=== PATIENT | female | born 1975 | race Caucasian/White ===

== ENCOUNTER → 2017-03-06 | Outpatient (CLI) | payer BC, MEDICAID ==
--- NOTE | 2017-03-06 13:13 | Diagnostic Imaging Report ---
PROCEDURE: US abdomen complete. TECHNIQUE: Multiple real-time grayscale images were obtained over the abdomen in various projections. INDICATION: Pain, history of hernia. FINDINGS: Hepatic parenchymal echotexture is homogenous and unremarkable. No solid or cystic mass. No biliary dilatation. The gallbladder appears normal. Pancreas is obscured by overlying bowel gas as is the majority of the aorta. The partially visualized cava appears normal. Right kidney measures at least 8.8 cm long axis. Its upper pole is obscured by gas. Its visualized portions are unremarkable. The left kidney measures 10.5 cm unobstructed and normal. There is no ascites or fluid collection. The spleen is 13 cm and nonfocal. IMPRESSION: No abnormality identified. Shadowing bowel gas obscures from visualization portions of the central retroperitoneum and the upper pole of the right kidney, no visualized abnormality. Dictated by: Dictated on workstation # [id number]
--- NOTE | 2017-03-06 13:31 | Diagnostic Imaging Report ---
Three views of the lumbar spine. INDICATION: Back pain. FINDINGS: There is satisfactory alignment of the lumbar spine. The vertebral body heights are preserved. Disc heights are also preserved. There is minimal anterior osteophyte formation around the thoracolumbar junction and in the [id number] lumbar spine levels. The SI joints appear unremarkable. The paraspinal soft tissues appear unremarkable. IMPRESSION: Minimal degenerative changes. Dictated by: Dictated on workstation # [id number]
--- NOTE | 2017-03-06 13:44 | Diagnostic Imaging Report ---
Three views of the thoracic spine. INDICATION: Back pain. FINDINGS: The alignment at the posterior spinal line is satisfactory. The vertebral body heights are preserved. Disc heights are also preserved. Minimal anterior osteophytes are seen in the mid thoracic spine levels. The soft tissues demonstrate prominent cardiac size, probably exaggerated by the AP projection. IMPRESSION: Minimal degenerative changes. Dictated by: Dictated on workstation # [id number]
== END ==
LOC: RAD 08:41
PROVIDERS: ATTEND Nurse Practitioner Family
DX: R10.11 Right upper quadrant pain (principal); M54.6 Pain in thoracic spine; M54.5 Low back pain
CPT/HCPCS: 72072; 72100; 76700